=== PATIENT | female | born 1940 | race Native Hawaiian/Other Pacific Islander ===

== ENCOUNTER 2019-11-18 13:28 | Outpatient (CLI) | payer OTHER, MEDICARE | END 2019-11-18 19:27 | disposition home or self-care (01) | LOC: RAD 13:28 | DX: M25.511 Pain in right shoulder (principal) ==

== ENCOUNTER 2020-04-28 14:11 | Outpatient (CLI) | payer OTHER, MEDICARE | END 2020-04-28 20:34 | disposition home or self-care (01) | LOC: MRI 14:11 | DX: M75.41 Impingement syndrome of right shoulder (principal) ==